=== PATIENT | female | born 1990 ===

== ENCOUNTER 2020-06-16 05:05 | Inpatient (IN) | payer MEDICAID ==
[2020-06-16] MEDS ORDERED: Methylergonovine 0.2 MG/1 ML Amp IM PRN (06:07)
[2020-06-16] MEDS ORDERED: Misoprostol 25 MCG (1/4 of 100 MCG) Tab VAG PRN ×2 (06:07→07:00)
[2020-06-16] MEDS ORDERED: Ondansetron 4 MG/2 ML SDV IVPUSH PRN (06:07)
[2020-06-16] MEDS ORDERED: Butorphanol 1 MG/ML SDV IVPUSH PRN (06:07)
[2020-06-16] MEDS ORDERED: Sodium Chloride 0.9% 10 ML SDV IV PRN (06:07)
[2020-06-16] MEDS ORDERED: Tranexamic Acid 1,000 MG in Sodium Chloride 0.9% 100 ML IV PRN (06:07)
[2020-06-16] MEDS ORDERED: Nalbuphine 10 MG/1 ML Vial IVPUSH PRN (06:07)
[2020-06-16] MEDS ORDERED: Carboprost Tromethamine 250 MCG/1 ML Amp IM PRN (06:07)
[2020-06-16] MEDS ORDERED: Misoprostol 200 MCG Tab PO PRN (06:07)
[2020-06-16] MEDS ORDERED: Terbutaline 1 MG/ML SDV SUBCUT PRN (06:07)
[2020-06-16] MEDS ORDERED: Water For Irrigation,Sterile 1,000 ML Container IRR PRN (06:07)
[2020-06-16] MEDS ORDERED: Sodium Chloride 0.9% 10 ML Syringe FLUSH PRN (06:07)
[2020-06-16] MEDS ORDERED: Misoprostol 25 MCG (1/4 of 100 MCG) Tab PO PRN ×2 (06:07→07:00)
[2020-06-16] MEDS ORDERED: Sodium Chloride 0.9% 2.5 ML Syringe FLUSH PRN (06:07)
[2020-06-16] MEDS ORDERED: Lidocaine 1% 50 ML MDV INJECT PRN (06:07)
[2020-06-16] MEDS ORDERED: Oxytocin/0.9 % Sodium Chloride 30 UNIT/500 ML BAG IV SCH ×2 (06:15)
[2020-06-16] MEDS ORDERED: hydrOXYzine Pamoate 25 MG Cap PO PRN (06:16)
--- NOTE | 2020-06-16 12:42 | PCM.LDHP ---
L&D History of Present Illness - General Date of Service: 06/16/20 Admit Problem/Dx: Patient Status Order with Admit Dx/Problem 06/16/20 06:07 Patient Status [ADT] Routine Admission Diagnosis/Problem Admission Diagnosis/Problem Source of Information: Patient History Limitations: Reports: No Limitations - History of Present Illness Introduction:: 30yo @ 34w 4d here for elective IOL. course was unremarkable. O pos, Abs screen neg, RI, GBS neg. Denies LOF, VB or contractions. - Related Data Allergies/Adverse Reactions: Allergies Allergy/AdvReac Type Severity Reaction Status Date / Time No Known Allergies Allergy Verified 06/16/20 06:45 Home Medications: Home Meds Docusate Sodium [Colace] 100 mg PO BID 08/22/16 [History] Vit 90/Iron Fum/Folic [ Formula] 1 tab PO DAILY 08/22/16 [History] Past Medical History HEENT History: Reports: Impaired Vision [employer] History: Reports: Musculoskeletal History: Reports: None Psychiatric History: Reports: Anxiety - Infectious Disease History Infectious Disease History: Reports: Chicken Pox - Past Surgical History HEENT Surgical History: Reports: Oral Surgery Other Musculoskeletal Surgeries/Procedures:: 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; history of right leg fracture with surgery Social & Family History - Family History OBGYN: Reports: Oncologic: Reports: Breast, Liver, Lung, Pancreatic - Tobacco Use Tobacco Use Status *Q: Former Tobacco User Years of Tobacco use: 5 Used Tobacco, but Quit: Yes Month/Year Tobacco Last Used: 2016 - Caffeine Use Caffeine Use: Reports: Coffee, Tea Other Caffeine Use: three times per week - Recreational Drug Use Recreational Drug Use: No H&P Review of Systems - Review of Systems: Review Of Systems: See Below General: Reports: No Symptoms HEENT: Reports: No Symptoms Pulmonary: Reports: No Symptoms Cardiovascular: Reports: No Symptoms Gastrointestinal: Reports: No Symptoms Genitourinary: Reports: No Symptoms Musculoskeletal: Reports: No Symptoms Skin: Reports: No Symptoms Psychiatric: Reports: No Symptoms Neurological: Reports: No Symptoms L&D Exam - Exam Exam: See Below - Vital Signs Weight: 128.367 kg - OB Specific Contraction Intensity: Mild Movement: Active Heart Tones: Present Heart Rate (FHR) Variability: Moderate (6-25 bmp) Estimated Weight: 8lbs - Perez Score Perez Score Cervix Position: Posterior Perez Score Consistency: Medium Perez Score Effacement: 31-50% Perez Score Dilation: 3-4 cm Perez Score 's Station: -2 Perez Score Total: 5 - Exam General: Alert, Oriented HEENT: Conjunctiva Clear Neck: Supple Lungs: Normal Respiratory Effort Cardiovascular: Regular Rate GI/Abdominal Exam: Soft, Non-Tender Extremities: Normal Inspection - Patient Data Lab Results Last 24 hrs: Laboratory Results - last 24 hr 06/16/20 06/16/20 06/16/20 Range/Units 05:25 05:25 05:42 WBC 9.93 (4.0-11.0) K/uL RBC 4.31 (4.30-5.90) M/uL Hgb 12.4 (12.0-16.0) g/dL Hct 38.1 (36.0-46.0) % MCV 88.4 (80.0-98.0) fL MCH 28.8 (27.0-32.0) pg MCHC 32.5 (31.0-37.0) g/dL RDW Std Deviation 49.3 (28.0-62.0) fl RDW Coeff of Mckenna 15 (11.0-15.0) % Plt Count 150 (150-400) K/uL MPV 11.80 (7.40-12.00) fL Nucleated RBC % 0.0 /100WBC Nucleated RBCs # 0 K/uL SARS-CoV-2 RNA (JAMES) NEGATIVE (NEGATIVE) Blood Type O POSITIVE Antibody Screen NEGATIVE Result Diagrams: 06/16/20 05:25 - Problem List (1) Term SNOMED Code(s): 84876635 ICD Code: Z34.90 - ENCNTR FOR SUPRVSN OF NORMAL , UNSP, UNSP TRIMESTER Status: Acute Priority: Medium Current Visit: Yes (2) Elective induction of labor planned SNOMED Code(s): 661327093 ICD Code: PHC7932 - Status: Acute Priority: High Current Visit: Yes Problem List Initiated/Reviewed/Updated: Yes Orders Last 24hrs: Active Orders 24 hr Category Date Time Status Patient Status [ADT] Routine ADT 06/16/20 06:07 Active Bedrest Bathroom Privileges [RC] ASDIRECTED Care 06/16/20 06:07 Active Communication Order [RC] ASDIRECTED Care 06/16/20 06:07 Active Communication Order [RC] ASDIRECTED Care 06/16/20 06:07 Active Communication Order [RC] ASDIRECTED Care 06/16/20 06:07 Active Heart Tones [RC] CONTINUOUS Care 06/16/20 06:07 Active Non Stress Test [RC] PER UNIT ROUTINE Care 06/16/20 06:07 Active May Shower [RC] ASDIRECTED Care 06/16/20 06:07 Active Notify Provider [RC] PRN Care 06/16/20 06:07 Active Notify Provider [RC] PRN Care 06/16/20 06:07 Active Notify Provider [RC] PRN Care 06/16/20 06:07 Active Notify Provider [RC] STAT Care 06/16/20 06:07 Active Oxygen Therapy [RC] ASDIRECTED Care 06/16/20 06:07 Active Peripheral IV Care [RC] PRN Care 06/16/20 06:07 Active Up ad Patricia [RC] ASDIRECTED Care 06/16/20 06:07 Active Vaginal Exam [RC] PRN Care 06/16/20 06:07 Active Vaginal Exam [RC] PRN Care 06/16/20 06:07 Active Vital Signs [RC] PER UNIT ROUTINE Care 06/16/20 06:07 Active Vital Signs [RC] PER UNIT ROUTINE Care 06/16/20 06:07 Active Regular Diet [DIET] Diet 06/16/20 Breakfast Active RPR (SYPHILIS SERO) W/ RFLX [REF] Routine Lab 06/16/20 05:25 Received Butorphanol [Stadol] Med 06/16/20 06:07 Active 1 mg IVPUSH Q1H PRN Carboprost Tromethamine [Hemabate DS] Med 06/16/20 06:07 Active 250 mcg IM ASDIRECTED PRN Lactated Ringers [Ringers, Lactated] 1,000 ml Med 06/16/20 06:15 Active IV ASDIRECTED Lidocaine 1% [Xylocaine 1%] Med 06/16/20 06:07 Active 50 ml INJECT ONETIME PRN Methylergonovine [Methergine] Med 06/16/20 06:07 Active 0.2 mg IM ASDIRECTED PRN Nalbuphine [Nubain] Med 06/16/20 06:07 Active 10 mg IVPUSH Q1H PRN Ondansetron [Zofran] Med 06/16/20 06:07 Active 4 mg IVPUSH Q6H PRN Oxytocin/0.9 % Sodium Chloride [Oxytocin 30 Unit/500 ML Med 06/16/20 06:15 Active -NS] 30 unit in 500 ml IV TITRATE Oxytocin/0.9 % Sodium Chloride [Oxytocin 30 Unit/500 ML Med 06/16/20 06:15 Active -NS] 30 unit in 500 ml IV TITRATE Sodium Chloride 0.9% [Normal Saline] Med 06/16/20 06:07 Active 10 ml IV ASDIRECTED PRN Sodium Chloride 0.9% [Saline Flush] Med 06/16/20 06:07 Active 10 ml FLUSH ASDIRECTED PRN Sodium Chloride 0.9% [Saline Flush] Med 06/16/20 06:07 Active 2.5 ml FLUSH ASDIRECTED PRN Terbutaline [Brethine] Med 06/16/20 06:07 Active 0.25 mg SUBCUT ASDIRECTED PRN Tranexamic Acid [Cyklokapron] 1,000 mg Med 06/16/20 06:07 Active Sodium Chloride 0.9% [Normal Saline] 100 ml IV ONETIME Water For Irrigation,Sterile [Sterile Water for Med 06/16/20 06:07 Active Irrigation] 1,000 ml IRR ASDIRECTED PRN hydrOXYzine pamoate [Vistaril] Med 06/16/20 06:16 Active 50 mg PO BEDTIME PRN miSOPROStoL [Cytotec] Med 06/16/20 06:07 Active 200 mcg PO ONETIME PRN miSOPROStoL [Cytotec] Med 06/16/20 07:00 Active 25 mcg PO ONETIME PRN miSOPROStoL [Cytotec] Med 06/16/20 06:07 Active 25 mcg PO Q4H PRN miSOPROStoL [Cytotec] Med 06/16/20 07:00 Active 25 mcg VAG ONETIME PRN miSOPROStoL [Cytotec] Med 06/16/20 06:07 Active 25 mcg VAG Q4H PRN Scalp Electrode [WOMSER] Per Unit Routine Oth 06/16/20 06:07 Ordered Medication Administration Instruction [OM.PC] Q3H Oth 12/22/20 06:15 Ordered Peripheral IV Insertion Adult [OM.PC] Routine Oth 06/16/20 06:07 Ordered Resuscitation Status Routine Resus Stat 06/16/20 06:07 Ordered Medication Orders Butorphanol Tartrate (Stadol) 1 mg IVPUSH Q1H PRN PRN Reason: Pain Carboprost Tromethamine (Hemabate Ds) 250 mcg IM ASDIRECTED PRN PRN Reason: Post Hemorrhage Hydroxyzine Pamoate (Vistaril) 50 mg PO BEDTIME PRN PRN Reason: Insomnia Oxytocin/Sodium Chloride (Oxytocin 30 Unit/500 Ml-Ns) 30 unit in 500 mls @ 999 mls/hr IV TITRATE ROYA Tranexamic Acid 1,000 mg/ (Sodium Chloride) 110 mls @ 660 mls/hr IV ONETIME PRN PRN Reason: Bleeding Oxytocin/Sodium Chloride (Oxytocin 30 Unit/500 Ml-Ns) 30 unit in 500 mls @ 2 mls/hr IV TITRATE ROYA; Protocol Lactated Ringer's (Ringers, Lactated) 1,000 mls @ 150 mls/hr IV ASDIRECTED ROYA Lidocaine HCl (Xylocaine 1%) 50 ml INJECT ONETIME PRN PRN Reason: Laceration repair Methylergonovine Maleate (Methergine) 0.2 mg IM ASDIRECTED PRN PRN Reason: Post Hemorrhage Misoprostol (Cytotec) 200 mcg PO ONETIME PRN PRN Reason: Post Hemorrhage Misoprostol (Cytotec) 25 mcg VAG ONETIME PRN PRN Reason: Cervical Ripening Last Admin: 06/16/20 07:28 Dose: 25 mcg Documented by: [id number] Misoprostol (Cytotec) 25 mcg VAG Q4H PRN PRN Reason: Cervical Ripening Misoprostol (Cytotec) 25 mcg PO ONETIME PRN PRN Reason: Cervical Ripening Last Admin: 06/16/20 07:33 Dose: 25 mcg Documented by: [id number] Misoprostol (Cytotec) 25 mcg PO Q4H PRN PRN Reason: Cervical Ripening Nalbuphine HCl (Nubain) 10 mg IVPUSH Q1H PRN PRN Reason: Pain (severe 7-10) Ondansetron HCl (Zofran) 4 mg IVPUSH Q6H PRN PRN Reason: Nausea/Vomiting Sodium Chloride (Saline Flush) 10 ml FLUSH ASDIRECTED PRN PRN Reason: Keep Vein Open Sodium Chloride (Saline Flush) 2.5 ml FLUSH ASDIRECTED PRN PRN Reason: Keep Vein Open Sodium Chloride (Normal Saline) 10 ml IV ASDIRECTED PRN PRN Reason: IV Use Sterile Water (Sterile Water For Irrigation) 1,000 ml IRR ASDIRECTED PRN PRN Reason: delivery Terbutaline Sulfate (Brethine) 0.25 mg SUBCUT ASDIRECTED PRN PRN Reason: Tacysystole Assessment/Plan Comment:: 30yo at 39w4d admitted for elective induction of labor. Reactive strip. Perez score 5. Will proceed with cytotec. Plan to start Pitocin after cytotec PRN Epidural PRN
[2020-06-16] MEDS: Lactated Ringers 1,000 ML IV SCH ×4 (13:29→19:49)
[2020-06-16] MEDS ORDERED: Bupivicaine/fentaNYL/NS 250 ML ONE (13:44)
--- NOTE | 2020-06-16 14:30 | PCM.PREANE ---
Preanesthetic Assessment - Anesthesia/Transfusion/Family Hx Anesthesia History: Prior Anesthesia Without Reaction Family History of Anesthesia Reaction: No Transfusion History: No Prior Transfusion(s) - Review of Systems General: No Symptoms Pulmonary: No Symptoms Cardiovascular: No Symptoms Gastrointestinal: No Symptoms Neurological: No Symptoms Other: Reports: None (Patient denies any personal or family hx of bleeding problems) - Physical Assessment Height: 1.75 m Weight: 128.367 kg ASA Class: 3 Mental Status: Alert & Oriented x3 Dentition: Reports: Normal Dentition ROM/Head Extension: Full - Lab Values: Laboratory Last Values WBC 9.93 K/uL (4.0-11.0) 06/16/20 05:25 RBC 4.31 M/uL (4.30-5.90) 06/16/20 05:25 Hgb 12.4 g/dL (12.0-16.0) 06/16/20 05:25 Hct 38.1 % (36.0-46.0) 06/16/20 05:25 MCV 88.4 fL (80.0-98.0) 06/16/20 05:25 MCH 28.8 pg (27.0-32.0) 06/16/20 05:25 MCHC 32.5 g/dL (31.0-37.0) 06/16/20 05:25 RDW Std Deviation 49.3 fl (28.0-62.0) 06/16/20 05:25 RDW Coeff of Mckenna 15 % (11.0-15.0) 06/16/20 05:25 Plt Count 150 K/uL (150-400) 06/16/20 05:25 MPV 11.80 fL (7.40-12.00) 06/16/20 05:25 Nucleated RBC % 0.0 /100WBC 06/16/20 05:25 Nucleated RBCs # 0 K/uL 06/16/20 05:25 SARS-CoV-2 RNA (JAMES) NEGATIVE (NEGATIVE) 06/16/20 05:42 Blood Type O POSITIVE 06/16/20 05:25 Antibody Screen NEGATIVE 06/16/20 05:25 - Allergies Allergies/Adverse Reactions: Allergies Allergy/AdvReac Type Severity Reaction Status Date / Time No Known Allergies Allergy Verified 06/16/20 06:45 - Acknowledgements Anesthesia Type Planned: Epidural Pt an Appropriate Candidate for the Planned Anesthesia: Yes Alternatives and Risks of Anesthesia Discussed w Pt/Guardian: Yes Pt/Guardian Understands and Agrees with Anesthesia Plan: Yes PreAnesthesia Questionnaire HEENT History: Reports: Impaired Vision 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; history of right leg fracture with surgery - SUBSTANCE USE Tobacco Use Status *Q: Former Tobacco User Tobacco Use Within Last Twelve Months: Cigarettes Recreational Drug Use History: No - HOME MEDS Home Medications: Home Meds Docusate Sodium [Colace] 100 mg PO BID 08/22/16 [History] Vit 90/Iron Fum/Folic [ Formula] 1 tab PO DAILY 08/22/16 [History] - CURRENT (IN HOUSE) MEDS Current Meds: Current Medications Butorphanol Tartrate (Stadol) 1 mg IVPUSH Q1H PRN PRN Reason: Pain Carboprost Tromethamine (Hemabate Ds) 250 mcg IM ASDIRECTED PRN PRN Reason: Post Hemorrhage Hydroxyzine Pamoate (Vistaril) 50 mg PO BEDTIME PRN PRN Reason: Insomnia Oxytocin/Sodium Chloride (Oxytocin 30 Unit/500 Ml-Ns) 30 unit in 500 mls @ 999 mls/hr IV TITRATE ROYA Tranexamic Acid 1,000 mg/ (Sodium Chloride) 110 mls @ 660 mls/hr IV ONETIME PRN PRN Reason: Bleeding Oxytocin/Sodium Chloride (Oxytocin 30 Unit/500 Ml-Ns) 30 unit in 500 mls @ 2 mls/hr IV TITRATE ROYA; Protocol Lactated Ringer's (Ringers, Lactated) 1,000 mls @ 150 mls/hr IV ASDIRECTED ROYA Last Admin: 06/16/20 13:29 Dose: 999 mls/hr Documented by: Lidocaine HCl (Xylocaine 1%) 50 ml INJECT ONETIME PRN PRN Reason: Laceration repair Methylergonovine Maleate (Methergine) 0.2 mg IM ASDIRECTED PRN PRN Reason: Post Hemorrhage Misoprostol (Cytotec) 200 mcg PO ONETIME PRN PRN Reason: Post Hemorrhage Misoprostol (Cytotec) 25 mcg VAG ONETIME PRN PRN Reason: Cervical Ripening Last Admin: 06/16/20 07:28 Dose: 25 mcg Documented by: Misoprostol (Cytotec) 25 mcg VAG Q4H PRN PRN Reason: Cervical Ripening Last Admin: 06/16/20 12:40 Dose: 25 mcg Documented by: Misoprostol (Cytotec) 25 mcg PO ONETIME PRN PRN Reason: Cervical Ripening Last Admin: 06/16/20 07:33 Dose: 25 mcg Documented by: Misoprostol (Cytotec) 25 mcg PO Q4H PRN PRN Reason: Cervical Ripening Last Admin: 06/16/20 12:40 Dose: 25 mcg Documented by: Nalbuphine HCl (Nubain) 10 mg IVPUSH Q1H PRN PRN Reason: Pain (severe 7-10) Ondansetron HCl (Zofran) 4 mg IVPUSH Q6H PRN PRN Reason: Nausea/Vomiting Sodium Chloride (Saline Flush) 10 ml FLUSH ASDIRECTED PRN PRN Reason: Keep Vein Open Sodium Chloride (Saline Flush) 2.5 ml FLUSH ASDIRECTED PRN PRN Reason: Keep Vein Open Sodium Chloride (Normal Saline) 10 ml IV ASDIRECTED PRN PRN Reason: IV Use Sterile Water (Sterile Water For Irrigation) 1,000 ml IRR ASDIRECTED PRN PRN Reason: delivery Terbutaline Sulfate (Brethine) 0.25 mg SUBCUT ASDIRECTED PRN PRN Reason: Tacysystole Discontinued Medications Fentanyl/Bupivacaine HCl (Fentanyl/Bupivacaine/Ns 2 Mcg-0.125% 250 Ml) Confirm Administered Dose 250 mls @ as directed .ROUTE .STK-MED ONE Stop: 06/16/20 13:45
[2020-06-16] MEDS ORDERED: fentaNYL 100 MCG/2 ML SDV ONE (18:35)
--- NOTE | 2020-06-16 19:23 | PCM.SN.2 ---
- Free Text/Narrative Note: Called by OB nurse that patient was feeling uncomfortable. When testing previous epidural after bolus, patient stated that she had numbness bilaterally on both legs to T8 and that her back pain was gone and she was comfortable. Patient agreeable to redoing epidural. After bolus this time, patient did not get any relief. There was ELYSIA and catheter threaded easily so Dr. Marrero called and came in to redo epidural. He gave fentanyl 2 ml after epidural test dose and then 10 ml bolus of bupivacaine .125% with fentanyl 2 mcg/ml. Patient states she is comfortable at 1920.
[2020-06-17] MEDS ORDERED: ceFAZolin/Dextrose,Iso-Osmotic 2 GM/50 ML Duplex Bag IV ONE (00:52)
[2020-06-17] MEDS ORDERED: Lanolin 100% Cream 7 GM Tube ONE (03:44)
[2020-06-17] MEDS ORDERED: Ibuprofen 800 MG Tab ONE (03:44)
[2020-06-17] MEDS ORDERED: Benzocaine/Menthol 20%-0.5% Spray 78 GM Cannister ONE (03:44)
[2020-06-17] MEDS ORDERED: Witch Hazel Medicated Pads 40/Jar TOP ONE (03:44)
[2020-06-17] MEDS: Ibuprofen 800 MG Tab PO PRN ×3 (03:48→17:01)
[2020-06-17] MEDS ORDERED: Bisacodyl 10 MG Supp RECTAL PRN (04:05)
[2020-06-17] MEDS ORDERED: oxyCODONE 5 MG Tab PO PRN (04:05)
[2020-06-17] MEDS ORDERED: Benzocaine/Menthol 20%-0.5% Spray 78 GM Cannister TOP PRN (04:05)
[2020-06-17] MEDS ORDERED: Ibuprofen 400 MG Tab PO PRN (04:05)
[2020-06-17] MEDS ORDERED: Witch Hazel Medicated Pads 40/Jar TOP PRN (04:05)
[2020-06-17] MEDS ORDERED: Lanolin 100% Cream 7 GM Tube TOP PRN (04:05)
[2020-06-17] MEDS ORDERED: Acetaminophen 500 MG Tab PO PRN ×2 (04:05)
--- NOTE | 2020-06-17 08:02 | PCM.DEL ---
L & D Note - General Info Date of Service: 06/17/20 Mother's Due Date: 06/19/20 - Delivery Note Labor: Spontaneous Cervical Ripening Method: Misoprostil Delivery Outcome: Livebirth Delivery Method: Spontaneous Vaginal Delivery-Single Presentation: Vertex Nuchal Cord: None Anesthesia Type: Epidural Amniotic Fluid Description: Clear Episiotomy Type: None Laceration: 1st Degree Suture type: Vicryl Suture size: 4-0 Placenta: Intact Cord: 3 Vessels Estimated Blood Loss: 350 Resuscitation Needed: No Crawley: Stimulated Score 1 min: 8 Score 5 min: 9 Delivery Comments (Free Text/Narrative):: 30yo G2 now P2002 @ 39w 5d GA after uncomplicated elective IOL. course was unremarkable. of a live male, 9lb 8oz and Apgars 8/9. Delivered ELIAN, no nuchal cord, No meconium. Vertex and body delivered without difficulty. Cord clamped and cut. Nose and mouth bulb suctioned; Baby placed on Mom's abdomen. Placenta delivered spontaneously, intact. Fundus firm, minimal bleeding. Placenta appears intact with 3 vessel cord. Perineum and vagina inspected small 2nd degree perineal laceration repaired with 4-0 suture suture in the usual fashion. EBL 350cc. Hemostasis. Pt tolerated procedure well, recovering in LDR. by her side. Induction Criteria - Perez Score Perez Score Dilation: 3-4 cm Perez Score Effacement: 40-50% Perez Score Infant's Station: -2 Perez Score Consistency: Medium Perez Score Cervix Position: Posterior Perez Score Total: 5 Perez Score Presenting Part: Reports: Cephalic - Induction Gestational Age >/= 39 wks: Yes Estimated Pelvis: Reports: Adequate Reassuring Monitoring Strip: Yes Absence of Tachy Systole: Yes - Augmentation Estimated Pelvis: Reports: Adequate Weight Estimated:: Reports: AGA Estimated Weight if LGA: 7 kg Reassuring Monitoring Strip: Yes Absence of Tachy Systole: Yes - General Info Date of Service: 06/17/20 Admission Dx/Problem (Free Text): Patient Status Order with Admit Dx/Problem 06/16/20 06:07 Patient Status [ADT] Routine Admission Diagnosis/Problem Admission Diagnosis/Problem Subjective Update: S/P uncomplicated . Patient resting comfortably. Pain well controlled. Minimal bleeding Functional Status: Reports: Pain Controlled - Review of Systems General: Reports: No Symptoms HEENT: Reports: No Symptoms Pulmonary: Reports: No Symptoms Cardiovascular: Reports: No Symptoms Gastrointestinal: Reports: No Symptoms Genitourinary: Reports: No Symptoms Musculoskeletal: Reports: No Symptoms Skin: Reports: No Symptoms Neurological: Reports: No Symptoms Psychiatric: Reports: No Symptoms - Patient Data Vitals - Most Recent: Last Vital Signs Temp 96.6 F L 06/17/20 07:38 Pulse 56 L 06/17/20 07:38 Resp 20 06/17/20 07:38 BP 106/55 L 06/17/20 07:38 Pulse Ox 97 06/17/20 07:38 Weight - Most Recent: 128.367 kg I&O - Last 24 Hours: Intake & Output 06/16/20 06/17/20 06/17/20 22:59 06:59 14:59 Output Total 1100 Balance -1100 Lab Results Last 24 Hours: Laboratory Results - last 24 hr 06/17/20 Range/Units 06:47 Hgb 11.9 L (12.0-16.0) g/dL Hct 37.1 (36.0-46.0) % Med Orders - Current: Current Medications Acetaminophen (Tylenol Extra Strength) 500 mg PO Q4H PRN PRN Reason: Pain Acetaminophen (Tylenol Extra Strength) 1,000 mg PO Q4H PRN PRN Reason: Pain Benzocaine/Menthol (Dermoplast Pain Relief 20%-0.5% [place]) 78 gm TOP ASDIRECTED PRN PRN Reason: Perineal Comfort Measure Bisacodyl (Dulcolax) 10 mg RECTAL ONETIME PRN PRN Reason: Constipation Docusate Sodium (Colace) 100 mg PO BID PRN PRN Reason: Constipation Emollient Ointment (Lansinoh Hpa) 0 gm TOP ASDIRECTED PRN PRN Reason: Sore Nipples Hydroxyzine Pamoate (Vistaril) 50 mg PO BEDTIME PRN PRN Reason: Insomnia Oxytocin/Sodium Chloride (Oxytocin 30 Unit/500 Ml-Ns) 30 unit in 500 mls @ 2 mls/hr IV TITRATE ROYA; Protocol Last Titration: 06/16/20 21:36 Dose: 6 munits/min, 6 mls/hr Documented by: Ibuprofen (Motrin) 400 mg PO Q4H PRN PRN Reason: Pain Ibuprofen (Motrin) 800 mg PO Q6H PRN PRN Reason: Pain Misoprostol (Cytotec) 25 mcg VAG ONETIME PRN PRN Reason: Cervical Ripening Last Admin: 06/16/20 07:28 Dose: 25 mcg Documented by: Misoprostol (Cytotec) 25 mcg VAG Q4H PRN PRN Reason: Cervical Ripening Last Admin: 06/16/20 12:40 Dose: 25 mcg Documented by: Misoprostol (Cytotec) 25 mcg PO ONETIME PRN PRN Reason: Cervical Ripening Last Admin: 06/16/20 07:33 Dose: 25 mcg Documented by: Misoprostol (Cytotec) 25 mcg PO Q4H PRN PRN Reason: Cervical Ripening Last Admin: 06/16/20 12:40 Dose: 25 mcg Documented by: Oxycodone HCl (Oxycodone) 5 mg PO Q2H PRN PRN Reason: Pain Sodium Chloride (Saline Flush) 10 ml FLUSH ASDIRECTED PRN PRN Reason: Keep Vein Open Sodium Chloride (Saline Flush) 2.5 ml FLUSH ASDIRECTED PRN PRN Reason: Keep Vein Open Sodium Chloride (Normal Saline) 10 ml IV ASDIRECTED PRN PRN Reason: IV Use Terbutaline Sulfate (Brethine) 0.25 mg SUBCUT ASDIRECTED PRN PRN Reason: Tacysystole Witch Georgie (Tucks) 1 pad TOP ASDIRECTED PRN PRN Reason: comfort care Discontinued Medications Benzocaine/Menthol (Dermoplast Pain Relief 20%-0.5% [place]) Confirm Administered Dose 78 gm .ROUTE .STK-MED ONE Stop: 06/17/20 03:45 Butorphanol Tartrate (Stadol) 1 mg IVPUSH Q1H PRN PRN Reason: Pain Carboprost Tromethamine (Hemabate Ds) 250 mcg IM ASDIRECTED PRN PRN Reason: Post Hemorrhage Cefazolin Sodium/Dextrose (Ancef) Confirm Administered Dose 2 gm IV .STK-MED ONE Stop: 06/17/20 00:53 Emollient Ointment (Lansinoh Hpa) Confirm Administered Dose 7 gm .ROUTE .STK-MED ONE Stop: 06/17/20 03:45 Fentanyl (Sublimaze) Confirm Administered Dose 100 mcg .ROUTE .STK-MED ONE Stop: 06/16/20 18:36 Oxytocin/Sodium Chloride (Oxytocin 30 Unit/500 Ml-Ns) 30 unit in 500 mls @ 999 mls/hr IV TITRATE [facility] Tranexamic Acid 1,000 mg/ (Sodium Chloride) 110 mls @ 660 mls/hr IV ONETIME PRN PRN Reason: Bleeding Lactated Ringer's (Ringers, Lactated) 1,000 mls @ 150 mls/hr IV ASDIRECTED [facility] Last Admin: 06/16/20 19:49 Dose: 150 mls/hr Documented by: Fentanyl/Bupivacaine HCl (Fentanyl/Bupivacaine/Ns 2 Mcg-0.125% 250 Ml) Confirm Administered Dose 250 mls @ as directed .ROUTE .STK-MED ONE Stop: 06/16/20 13:45 Last Admin: 06/16/20 16:34 Dose: Not Given Documented by: Ibuprofen (Motrin) Confirm Administered Dose 800 mg .ROUTE .STK-MED ONE Stop: 06/17/20 03:45 Lidocaine HCl (Xylocaine 1%) 50 ml INJECT ONETIME PRN PRN Reason: Laceration repair Methylergonovine Maleate (Methergine) 0.2 mg IM ASDIRECTED PRN PRN Reason: Post Hemorrhage Misoprostol (Cytotec) 200 mcg PO ONETIME PRN PRN Reason: Post Hemorrhage Nalbuphine HCl (Nubain) 10 mg IVPUSH Q1H PRN PRN Reason: Pain (severe 7-10) Ondansetron HCl (Zofran) 4 mg IVPUSH Q6H PRN PRN Reason: Nausea/Vomiting Sterile Water (Sterile Water For Irrigation) 1,000 ml IRR ASDIRECTED PRN PRN Reason: delivery Witch Georgie (Tucks) Confirm Administered Dose 1 pad TOP .STK-MED ONE Stop: 06/17/20 03:45 - Exam General: Alert, Oriented HEENT: Pupils Reactive Neck: Supple Lungs: Normal Respiratory Effort Cardiovascular: Regular Rate GI/Abdominal Exam: Soft, Non-Tender (Female) Exam: Normal External Exam Extremities: Normal Inspection Skin: Warm Psy/Mental Status: Alert, Normal Affect, Normal Mood - Problem List & Annotations (1) Term SNOMED Code(s): 61694896 Code(s): Z34.90 - ENCNTR FOR SUPRVSN OF NORMAL , UNSP, UNSP TRIMESTER Status: Acute Priority: Medium Current Visit: Yes (2) Elective induction of labor planned SNOMED Code(s): 434010809 Code(s): BGG6109 - Status: Acute Priority: High Current Visit: Yes (3) Term delivered SNOMED Code(s): 73906512, 320804705 Code(s): O80 - ENCOUNTER FOR FULL-TERM UNCOMPLICATED DELIVERY Status: Acute Priority: High Current Visit: Yes - Problem List Review Problem List Initiated/Reviewed/Updated: Yes - My Orders Last 24 Hours: My Active Orders 06/17/20 04:05 Patient Status [ADT] Routine May Shower [RC] ASDIRECTED Up ad Patricia [RC] ASDIRECTED Vital Signs [RC] PER UNIT ROUTINE Acetaminophen [Tylenol Extra Strength] 1,000 mg PO Q4H PRN Acetaminophen [Tylenol Extra Strength] 500 mg PO Q4H PRN Benzocaine/Menthol [Dermoplast Pain Relief 20%-0.5% [place]] 78 gm TOP ASDIRECTED PRN Docusate Sodium [Colace] 100 mg PO BID PRN Ibuprofen [Motrin] 400 mg PO Q4H PRN Ibuprofen [Motrin] 800 mg PO Q6H PRN Lanolin [Lansinoh HPA] See Dose Instructions TOP ASDIRECTED PRN bisacodyL [Dulcolax] 10 mg RECTAL ONETIME PRN oxyCODONE 5 mg PO Q2H PRN witch Georgie [Tucks] 1 pad TOP ASDIRECTED PRN Assess Lochia [WOMSER] Per Unit Routine Assess Uterine Involution [WOMSER] Per Unit Routine Peripheral IV Discontinue [OM.PC] Routine - Assessment Assessment:: S/P uncomplicated . Patient resting comfortably. Pain well controlled. Minimal bleeding - Plan Plan:: Routine care
--- NOTE | 2020-06-17 08:31 | PCM48HPAN ---
Post Anesthesia Note - EVALUATION WITHIN 48HRS OF ANESTHETIC Vital Signs in Normal Range: Yes Patient Participated in Evaluation: Yes Respiratory Function Stable: Yes Airway Patent: Yes Cardiovascular Function Stable: Yes Hydration Status Stable: Yes Pain Control Satisfactory: Yes Nausea and Vomiting Control Satisfactory: Yes Mental Status Recovered: Yes Vital Signs: Last Vital Signs Temp 35.9 C L 06/17/20 07:38 Pulse 56 L 06/17/20 07:38 Resp 20 06/17/20 07:38 BP 106/55 L 06/17/20 07:38 Pulse Ox 97 06/17/20 07:38 - COMMENTS/OBSERVATIONS Free Text/Narrative:: No anesthesia problems
[2020-06-17] MEDS: Docusate Sodium 100 MG Cap PO PRN (20:40)
[2020-06-18] MEDS: Ibuprofen 800 MG Tab PO PRN ×4 (00:37→20:09)
--- NOTE | 2020-06-18 07:57 | PCM.DCSUM1 ---
Discharge Summary - Hospital Course Free Text/Narrative:: Discharge home. Follow up in the clinic in 6 weeks; sooner, if needed. Diagnosis: Stroke: No Modified [place] Scale: No Symptoms at All Modified Lynn Scale Score: 0 - Discharge Data Discharge Date: 06/18/20 Discharge Disposition: Home, Self-Care 01 Condition: Good - Referral to Home Health Primary Care Physician: PCP None - Patient Instructions Diet: Usual Diet as Tolerated, Regular Diet as Tolerated, Drink 8-10+ Glasses/Day Activity: As Tolerated, No Strenuous Activities, Rest and Relax Today Driving: May Drive Today Showering/Bathing: May Shower Notify Provider of: Fever, Increased Pain, Swelling and Redness, Drainage, Nausea and/or Vomiting - Discharge Plan *PRESCRIPTION DRUG MONITORING PROGRAM REVIEWED*: Not Applicable *COPY OF PRESCRIPTION DRUG MONITORING REPORT IN PATIENT JOIE: Not Applicable Prescriptions/Med Rec: Ibuprofen [Motrin] 800 mg PO Q6H PRN #90 tablet PRN Reason: Pain Home Medications: Home Meds Docusate Sodium [Colace] 100 mg PO BID 08/22/16 [History] Vit 90/Iron Fum/Folic [ Formula] 1 tab PO DAILY 08/22/16 [History] Ibuprofen [Motrin] 800 mg PO Q6H PRN #90 tablet 06/18/20 [Rx] Oxygen Therapy Mode: Room Air - Discharge Summary/Plan Comment DC Time >30 min.: Yes - General Info Date of Service: 06/18/20 Admission Dx/Problem (Free Text: Patient Status Order with Admit Dx/Problem 06/16/20 06:07 Patient Status [ADT] Routine Admission Diagnosis/Problem Admission Diagnosis/Problem Subjective Update: S/P uncomplicated . Patient resting comfortably. Pain well controlled. Minimal bleeding Functional Status: Reports: Pain Controlled, Tolerating Diet, Ambulating, Urinating - Review of Systems General: Reports: No Symptoms HEENT: Reports: No Symptoms Pulmonary: Reports: No Symptoms Cardiovascular: Reports: No Symptoms Gastrointestinal: Reports: No Symptoms Genitourinary: Reports: No Symptoms Musculoskeletal: Reports: No Symptoms Skin: Reports: No Symptoms Neurological: Reports: No Symptoms Psychiatric: Reports: No Symptoms - Patient Data Vitals - Most Recent: Last Vital Signs Temp 97.6 F 06/17/20 21:00 Pulse 84 06/17/20 21:00 Resp 19 06/17/20 21:00 BP 135/66 06/17/20 21:00 Pulse Ox 98 06/17/20 21:00 Weight - Most Recent: 283 lb Lab Results - Last 24 hrs: Laboratory Results - last 24 hr 06/16/20 Range/Units 05:25 RPR Non-Reac (Non-Reac) Med Orders - Current: Current Medications Acetaminophen (Tylenol Extra Strength) 500 mg PO Q4H PRN PRN Reason: Pain Acetaminophen (Tylenol Extra Strength) 1,000 mg PO Q4H PRN PRN Reason: Pain Benzocaine/Menthol (Dermoplast Pain Relief 20%-0.5% [place]) 78 gm TOP ASDIRECTED PRN PRN Reason: Perineal Comfort Measure Last Admin: 06/17/20 03:50 Dose: 1 canister Documented by: Bisacodyl (Dulcolax) 10 mg RECTAL ONETIME PRN PRN Reason: Constipation Docusate Sodium (Colace) 100 mg PO BID PRN PRN Reason: Constipation Last Admin: 06/17/20 20:40 Dose: 100 mg Documented by: Emollient Ointment (Lansinoh Hpa) 0 gm TOP ASDIRECTED PRN PRN Reason: Sore Nipples Last Admin: 06/17/20 07:56 Dose: 7 g Documented by: Hydroxyzine Pamoate (Vistaril) 50 mg PO BEDTIME PRN PRN Reason: Insomnia Ibuprofen (Motrin) 400 mg PO Q4H PRN PRN Reason: Pain Ibuprofen (Motrin) 800 mg PO Q6H PRN PRN Reason: Pain Last Admin: 06/18/20 00:37 Dose: 800 mg Documented by: Oxycodone HCl (Oxycodone) 5 mg PO Q2H PRN PRN Reason: Pain Sodium Chloride (Saline Flush) 10 ml FLUSH ASDIRECTED PRN PRN Reason: Keep Vein Open Sodium Chloride (Saline Flush) 2.5 ml FLUSH ASDIRECTED PRN PRN Reason: Keep Vein Open Sodium Chloride (Normal Saline) 10 ml IV ASDIRECTED PRN PRN Reason: IV Use Witch Georgie (Tucks) 1 pad TOP ASDIRECTED PRN PRN Reason: comfort care Last Admin: 06/17/20 03:50 Dose: 1 tub Documented by: Discontinued Medications Benzocaine/Menthol (Dermoplast Pain Relief 20%-0.5% [place]) Confirm Administered Dose 78 gm .ROUTE .STK-MED ONE Stop: 06/17/20 03:45 Last Admin: 06/17/20 08:05 Dose: Not Given Documented by: Butorphanol Tartrate (Stadol) 1 mg IVPUSH Q1H PRN PRN Reason: Pain Carboprost Tromethamine (Hemabate Ds) 250 mcg IM ASDIRECTED PRN PRN Reason: Post Hemorrhage Cefazolin Sodium/Dextrose (Ancef) Confirm Administered Dose 2 gm IV .STK-MED ONE Stop: 06/17/20 00:53 Last Admin: 06/17/20 00:57 Dose: 2 gm Documented by: Emollient Ointment (Lansinoh Hpa) Confirm Administered Dose 7 gm .ROUTE .STK-MED ONE Stop: 06/17/20 03:45 Last Admin: 06/17/20 08:05 Dose: Not Given Documented by: Fentanyl (Sublimaze) Confirm Administered Dose 100 mcg .ROUTE .STK-MED ONE Stop: 06/16/20 18:36 Last Admin: 06/17/20 08:06 Dose: Not Given Documented by: Oxytocin/Sodium Chloride (Oxytocin 30 Unit/500 Ml-Ns) 30 unit in 500 mls @ 999 mls/hr IV TITRATE ROYA Tranexamic Acid 1,000 mg/ (Sodium Chloride) 110 mls @ 660 mls/hr IV ONETIME PRN PRN Reason: Bleeding Oxytocin/Sodium Chloride (Oxytocin 30 Unit/500 Ml-Ns) 30 unit in 500 mls @ 2 mls/hr IV TITRATE ROYA; Protocol Last Titration: 06/16/20 21:36 Dose: 6 munits/min, 6 mls/hr Documented by: Lactated Ringer's (Ringers, Lactated) 1,000 mls @ 150 mls/hr IV ASDIRECTED ROYA Last Admin: 06/16/20 19:49 Dose: 150 mls/hr Documented by: Fentanyl/Bupivacaine HCl (Fentanyl/Bupivacaine/Ns 2 Mcg-0.125% 250 Ml) Confirm Administered Dose 250 mls @ as directed .ROUTE .STK-MED ONE Stop: 06/16/20 13:45 Last Admin: 06/16/20 16:34 Dose: Not Given Documented by: Ibuprofen (Motrin) Confirm Administered Dose 800 mg .ROUTE .STK-MED ONE Stop: 06/17/20 03:45 Last Admin: 06/17/20 08:05 Dose: Not Given Documented by: Lidocaine HCl (Xylocaine 1%) 50 ml INJECT ONETIME PRN PRN Reason: Laceration repair Methylergonovine Maleate (Methergine) 0.2 mg IM ASDIRECTED PRN PRN Reason: Post Hemorrhage Misoprostol (Cytotec) 200 mcg PO ONETIME PRN PRN Reason: Post Hemorrhage Misoprostol (Cytotec) 25 mcg VAG ONETIME PRN PRN Reason: Cervical Ripening Last Admin: 06/16/20 07:28 Dose: 25 mcg Documented by: Misoprostol (Cytotec) 25 mcg VAG Q4H PRN PRN Reason: Cervical Ripening Last Admin: 06/16/20 12:40 Dose: 25 mcg Documented by: Misoprostol (Cytotec) 25 mcg PO ONETIME PRN PRN Reason: Cervical Ripening Last Admin: 06/16/20 07:33 Dose: 25 mcg Documented by: Misoprostol (Cytotec) 25 mcg PO Q4H PRN PRN Reason: Cervical Ripening Last Admin: 06/16/20 12:40 Dose: 25 mcg Documented by: Nalbuphine HCl (Nubain) 10 mg IVPUSH Q1H PRN PRN Reason: Pain (severe 7-10) Ondansetron HCl (Zofran) 4 mg IVPUSH Q6H PRN PRN Reason: Nausea/Vomiting Sterile Water (Sterile Water For Irrigation) 1,000 ml IRR ASDIRECTED PRN PRN Reason: delivery Terbutaline Sulfate (Brethine) 0.25 mg SUBCUT ASDIRECTED PRN PRN Reason: Tacysystole Tobi Jacques (Alexandru) Confirm Administered Dose 1 pad TOP .STK-MED ONE Stop: 06/17/20 03:45 Last Admin: 06/17/20 08:05 Dose: Not Given Documented by: - Exam General: Reports: Alert, Oriented, Cooperative, No Acute Distress Lungs: Reports: Normal Respiratory Effort Cardiovascular: Reports: Regular Rate, Regular Rhythm GI/Abdominal Exam: Soft, Non-Tender (Female) Exam: Deferred Rectal (Female) Exam: Deferred Back Exam: Reports: Normal Inspection, Full Range of Motion Extremities: Normal Inspection, Normal Range of Motion, Non-Tender, Normal Capillary Refill Skin: Reports: Warm, Dry, Intact Neurological: Reports: No New Focal Deficit, Normal Speech, Normal Tone Psy/Mental Status: Reports: Alert, Normal Affect, Normal Mood
[2020-06-18] MEDS: Docusate Sodium 100 MG Cap PO PRN (08:00)
[2020-06-19] MEDS: Ibuprofen 800 MG Tab PO PRN (06:09)
[2020-06-19] MEDS: Docusate Sodium 100 MG Cap PO PRN (06:09)
--- NOTE | 2020-06-19 07:03 | PCM.DCSUM1 ---
Discharge Summary - Hospital Course Free Text/Narrative:: Discharge home. Follow up in the clinic in 6 weeks; sooner, if needed. Diagnosis: Stroke: No Modified [place]ch[place] Scale: No Symptoms at All Modified [place] Scale Score: 0 - Discharge Data Discharge Date: 06/19/20 Discharge Disposition: Home, Self-Care 01 Condition: Good - Referral to Home Health Primary Care Physician: PCP None - Discharge Diagnosis/Problem(s) (1) (spontaneous vaginal delivery) SNOMED Code(s): 045930893 ICD Code: O80 - ENCOUNTER FOR FULL-TERM UNCOMPLICATED DELIVERY Status: Acute Priority: High Current Visit: Yes (2) History of depression SNOMED Code(s): 404060999 ICD Code: Z87.59 - PERSONAL HISTORY OF COMP OF PREG, CHLDBRTH AND THE PUERP; Z86.59 - PERSONAL HISTORY OF OTHER MENTAL AND BEHAVIORAL DISORDERS Status: Acute Priority: High Current Visit: Yes - Patient Instructions Diet: Usual Diet as Tolerated, Regular Diet as Tolerated, Drink 8-10+ Glasses/Day Activity: As Tolerated, No Strenuous Activities, Rest and Relax Today Driving: May Drive Today Showering/Bathing: May Shower Notify Provider of: Fever, Increased Pain, Swelling and Redness, Drainage, Nausea and/or Vomiting - Discharge Plan *PRESCRIPTION DRUG MONITORING PROGRAM REVIEWED*: Not Applicable *COPY OF PRESCRIPTION DRUG MONITORING REPORT IN PATIENT JOIE: Not Applicable Prescriptions/Med Rec: Ibuprofen [Motrin] 800 mg PO Q6H PRN #90 tablet PRN Reason: Pain Sertraline [Zoloft] 50 mg PO DAILY #30 tab Home Medications: Home Meds Docusate Sodium [Colace] 100 mg PO BID 08/22/16 [History] Vit 90/Iron Fum/Folic [ Formula] 1 tab PO DAILY 08/22/16 [History] Ibuprofen [Motrin] 800 mg PO Q6H PRN #90 tablet 06/18/20 [Rx] Sertraline [Zoloft] 50 mg PO DAILY #30 tab 06/18/20 [Rx] Oxygen Therapy Mode: Room Air Referrals: [facility] [Outside] Cherie Early, GABRIELE, [employer] [Mid-] - 07/30/20 9:30 am (Your 6 week post follow-up appointment is on 07/30/2020 at 9:30 AM with Cherie Early. Masks are required.) - Discharge Summary/Plan Comment DC Time >30 min.: Yes - General Info Date of Service: 06/19/20 Admission Dx/Problem (Free Text: Patient Status Order with Admit Dx/Problem 06/16/20 06:07 Patient Status [ADT] Routine Admission Diagnosis/Problem Admission Diagnosis/Problem Subjective Update: S/P uncomplicated . Patient resting comfortably. Pain well controlled. Minimal bleeding Functional Status: Reports: Pain Controlled, Tolerating Diet, Ambulating, Urinating - Review of Systems General: Reports: No Symptoms HEENT: Reports: No Symptoms Pulmonary: Reports: No Symptoms Cardiovascular: Reports: No Symptoms Gastrointestinal: Reports: No Symptoms Genitourinary: Reports: No Symptoms Musculoskeletal: Reports: No Symptoms Skin: Reports: No Symptoms Neurological: Reports: No Symptoms Psychiatric: Reports: No Symptoms - Patient Data Vitals - Most Recent: Last Vital Signs Temp 97.3 F 06/19/20 04:03 Pulse 85 06/19/20 04:03 Resp 18 06/19/20 04:03 BP 142/81 H 06/19/20 04:03 Pulse Ox 98 06/19/20 04:03 Weight - Most Recent: 283 lb Med Orders - Current: Current Medications Acetaminophen (Tylenol Extra Strength) 500 mg PO Q4H PRN PRN Reason: Pain Acetaminophen (Tylenol Extra Strength) 1,000 mg PO Q4H PRN PRN Reason: Pain Benzocaine/Menthol (Dermoplast Pain Relief 20%-0.5% [place]) 78 gm TOP ASDIRECTED PRN PRN Reason: Perineal Comfort Measure Last Admin: 06/17/20 03:50 Dose: 1 canister Documented by: Bisacodyl (Dulcolax) 10 mg RECTAL ONETIME PRN PRN Reason: Constipation Docusate Sodium (Colace) 100 mg PO BID PRN PRN Reason: Constipation Last Admin: 06/19/20 06:09 Dose: 100 mg Documented by: Emollient Ointment (Lansinoh Hpa) 0 gm TOP ASDIRECTED PRN PRN Reason: Sore Nipples Last Admin: 06/17/20 07:56 Dose: 7 g Documented by: Hydroxyzine Pamoate (Vistaril) 50 mg PO BEDTIME PRN PRN Reason: Insomnia Ibuprofen (Motrin) 400 mg PO Q4H PRN PRN Reason: Pain Ibuprofen (Motrin) 800 mg PO Q6H PRN PRN Reason: Pain Last Admin: 06/19/20 06:09 Dose: 800 mg Documented by: Oxycodone HCl (Oxycodone) 5 mg PO Q2H PRN PRN Reason: Pain Sodium Chloride (Saline Flush) 10 ml FLUSH ASDIRECTED PRN PRN Reason: Keep Vein Open Sodium Chloride (Saline Flush) 2.5 ml FLUSH ASDIRECTED PRN PRN Reason: Keep Vein Open Sodium Chloride (Normal Saline) 10 ml IV ASDIRECTED PRN PRN Reason: IV Use Witch Georgie (Tucks) 1 pad TOP ASDIRECTED PRN PRN Reason: comfort care Last Admin: 06/17/20 03:50 Dose: 1 tub Documented by: Discontinued Medications Benzocaine/Menthol (Dermoplast Pain Relief 20%-0.5% [place]) Confirm Administered Dose 78 gm .ROUTE .STK-MED ONE Stop: 06/17/20 03:45 Last Admin: 06/17/20 08:05 Dose: Not Given Documented by: Butorphanol Tartrate (Stadol) 1 mg IVPUSH Q1H PRN PRN Reason: Pain Carboprost Tromethamine (Hemabate Ds) 250 mcg IM ASDIRECTED PRN PRN Reason: Post Hemorrhage Cefazolin Sodium/Dextrose (Ancef) Confirm Administered Dose 2 gm IV .STK-MED ONE Stop: 06/17/20 00:53 Last Admin: 06/17/20 00:57 Dose: 2 gm Documented by: Emollient Ointment (Lansinoh Hpa) Confirm Administered Dose 7 gm .ROUTE .STK-MED ONE Stop: 06/17/20 03:45 Last Admin: 06/17/20 08:05 Dose: Not Given Documented by: Fentanyl (Sublimaze) Confirm Administered Dose 100 mcg .ROUTE .STK-MED ONE Stop: 06/16/20 18:36 Last Admin: 06/17/20 08:06 Dose: Not Given Documented by: Oxytocin/Sodium Chloride (Oxytocin 30 Unit/500 Ml-Ns) 30 unit in 500 mls @ 999 mls/hr IV TITRATE ROYA Tranexamic Acid 1,000 mg/ (Sodium Chloride) 110 mls @ 660 mls/hr IV ONETIME PRN PRN Reason: Bleeding Oxytocin/Sodium Chloride (Oxytocin 30 Unit/500 Ml-Ns) 30 unit in 500 mls @ 2 mls/hr IV TITRATE ROYA; Protocol Last Titration: 06/16/20 21:36 Dose: 6 munits/min, 6 mls/hr Documented by: Lactated Ringer's (Ringers, Lactated) 1,000 mls @ 150 mls/hr IV ASDIRECTED ROYA Last Admin: 06/16/20 19:49 Dose: 150 mls/hr Documented by: Fentanyl/Bupivacaine HCl (Fentanyl/Bupivacaine/Ns 2 Mcg-0.125% 250 Ml) Confirm Administered Dose 250 mls @ as directed .ROUTE .STK-MED ONE Stop: 06/16/20 13:45 Last Admin: 06/16/20 16:34 Dose: Not Given Documented by: Ibuprofen (Motrin) Confirm Administered Dose 800 mg .ROUTE .STK-MED ONE Stop: 06/17/20 03:45 Last Admin: 06/17/20 08:05 Dose: Not Given Documented by: Lidocaine HCl (Xylocaine 1%) 50 ml INJECT ONETIME PRN PRN Reason: Laceration repair Methylergonovine Maleate (Methergine) 0.2 mg IM ASDIRECTED PRN PRN Reason: Post Hemorrhage Misoprostol (Cytotec) 200 mcg PO ONETIME PRN PRN Reason: Post Hemorrhage Misoprostol (Cytotec) 25 mcg VAG ONETIME PRN PRN Reason: Cervical Ripening Last Admin: 06/16/20 07:28 Dose: 25 mcg Documented by: Misoprostol (Cytotec) 25 mcg VAG Q4H PRN PRN Reason: Cervical Ripening Last Admin: 06/16/20 12:40 Dose: 25 mcg Documented by: Misoprostol (Cytotec) 25 mcg PO ONETIME PRN PRN Reason: Cervical Ripening Last Admin: 06/16/20 07:33 Dose: 25 mcg Documented by: Misoprostol (Cytotec) 25 mcg PO Q4H PRN PRN Reason: Cervical Ripening Last Admin: 06/16/20 12:40 Dose: 25 mcg Documented by: Nalbuphine HCl (Nubain) 10 mg IVPUSH Q1H PRN PRN Reason: Pain (severe 7-10) Ondansetron HCl (Zofran) 4 mg IVPUSH Q6H PRN PRN Reason: Nausea/Vomiting Sterile Water (Sterile Water For Irrigation) 1,000 ml IRR ASDIRECTED PRN PRN Reason: delivery Terbutaline Sulfate (Brethine) 0.25 mg SUBCUT ASDIRECTED PRN PRN Reason: Tacysystole Tobi Jacques (Tucks) Confirm Administered Dose 1 pad TOP .STK-MED ONE Stop: 06/17/20 03:45 Last Admin: 06/17/20 08:05 Dose: Not Given Documented by: - Exam General: Reports: Alert, Oriented, Cooperative, No Acute Distress Lungs: Reports: Normal Respiratory Effort Cardiovascular: Reports: Regular Rate, Regular Rhythm GI/Abdominal Exam: Soft, Non-Tender (Female) Exam: Deferred Rectal (Female) Exam: Deferred Back Exam: Reports: Normal Inspection, Full Range of Motion Extremities: Normal Inspection, Normal Range of Motion, Normal Capillary Refill Skin: Reports: Warm, Dry, Intact Psy/Mental Status: Reports: Alert, Normal Affect, Normal Mood
[2020-06-19 08:26] VITALS: BP 140/81; PULSE 74
== END 2020-06-19 13:05 | disposition home or self-care (01) | DRG 807 ==
LOC: MW.OBCHECK 05:05 → MW.OB 05:06 → MW.OBCHECK 06:07 → OBSVTOIN 06-17 00:37 → MW.OB 06-17 04:08
PROVIDERS: ADMIT Obstetrics & Gynecology; ATTEND Nurse Practitioner Women's Health
PROC: 10E0XZZ Delivery of Products of Conception, External Approach (ICD-10-PCS; principal; 2020-06-17)
PROC: 0KQM0ZZ Repair Perineum Muscle, Open Approach (ICD-10-PCS; 2020-06-17)
PROC: 10D17Z9 Manual Extraction of Products of Conception, Retained, Via Natural or Artificial Opening (ICD-10-PCS; 2020-06-17)
PROC: 10907ZC Drainage of Amniotic Fluid, Therapeutic from Products of Conception, Via Natural or Artificial Opening (ICD-10-PCS; 2020-06-17)
PROC: 3E0P7VZ Introduction of Hormone into Female Reproductive, Via Natural or Artificial Opening (ICD-10-PCS; 2020-06-17)
PROC: 3E0R3BZ Introduction of Anesthetic Agent into Spinal Canal, Percutaneous Approach (ICD-10-PCS; 2020-06-17)
PROC: 00HU33Z Insertion of Infusion Device into Spinal Canal, Percutaneous Approach (ICD-10-PCS; 2020-06-17)
DX: O70.1 Second degree perineal laceration during delivery (principal); Z37.0 Single live birth; Z87.891 Personal history of nicotine dependence; Z20.828 Contact with and (suspected) exposure to other viral communicable diseases
CPT/HCPCS: 36415; 51702; 59025; 59409; 85014; 85018; 85027; 86592; 86850; 86900; 86901; A9270-GY; J0690; J2590; J7120; U0002